=== PATIENT | female | born 1980 | race Caucasian/White ===

== ENCOUNTER 2018-09-21 13:12 | Outpatient (CLI) | payer MEDICAID | END 2018-09-21 15:27 | disposition home or self-care (01) | LOC: OBT 13:12 → L-D 13:14 → OBT 15:27 | DX: O36.8130 Decreased fetal movements, third trimester, not applicable or unspecified (principal); O09.523 Supervision of elderly multigravida, third trimester; Z3A.39 39 weeks gestation of pregnancy | CPT/HCPCS: 76815; 76818 ==

== ENCOUNTER 2018-09-22 18:26 | Outpatient (CLI) | payer MEDICAID | END 2018-09-22 21:22 | disposition home or self-care (01) | LOC: OBT 18:26 → L-D 18:28 → OBT 21:22 | DX: O62.9 Abnormality of forces of labor, unspecified (principal); Z3A.39 39 weeks gestation of pregnancy | CPT/HCPCS: 76818 ==

== ENCOUNTER 2018-09-24 10:29 | Inpatient (IN) | payer MEDICAID ==
[2018-09-24] MEDS ORDERED: CARBOPROST 250 MCG INJ IM (13:30)
[2018-09-24] MEDS ORDERED: BUTORPHANOL 2 MG INJ IV (13:30)
[2018-09-24] MEDS ORDERED: BUTORPHANOL 1 MG INJ IV (13:30)
[2018-09-24] MEDS ORDERED: LIDOCAINE 1% (MPF) 30 ML INJ INJ (13:30)
[2018-09-24] MEDS ORDERED: METHYLERGONOVINE 0.2 MG INJ IM (13:30)
[2018-09-24] MEDS ORDERED: IBUPROFEN 600 MG TAB PO (13:30)
[2018-09-24] MEDS ORDERED: MISOPROSTOL 200 MCG TAB PR (13:30)
[2018-09-24] MEDS ORDERED: OXYTOCIN 30 UNITS/LR 500 ML IV (13:30)
[2018-09-24] MEDS: LACTATED RINGER'S 1,000 ML IV ×2 (13:37→23:00)
[2018-09-24 13:53] LABS: ADD MAN DIFF? NO
[2018-09-24 13:56] LABS: BASOPHILS % 0.4 % (0.0-2.0); EOSINOPHILS # 0.2 10^3/ul (0.0-0.5); EOSINOPHILS % 1.8 % (0.0-7.0); HEMATOCRIT 32.9 % (37.0-47.0); HEMOGLOBIN 10.7 g/dl (12.0-16.0); LYMPHOCYTES # 1.6 10^3/ul (0.8-2.9); LYMPHOCYTES % 18.7 % (15.0-51.0); MEAN CORPUSCULAR HEMOGLOBIN 29.6 pg (29.0-33.0); MEAN CORPUSCULAR HGB CONC 32.5 g/dl (32.0-37.0); MEAN CORPUSCULAR VOLUME 90.9 fl (82.0-101.0); MEAN PLATELET VOLUME 11.8 fl (7.4-10.4); MONOCYTE # 0.5 10^3/ul (0.3-0.9); MONOCYTES % 5.4 % (0.0-11.0); NEUTROPHIL # 6.3 10^3/ul (1.6-7.5); NEUTROPHILS % 73.3 % (39.0-77.0); PLATELET COUNT 196 10^3/UL (140-415); RED BLOOD COUNT 3.62 10^6/ul (4.20-5.40); RED CELL DISTRIBUTION WIDTH 15.8 % (11.5-14.5)
[2018-09-24 13:56] LABS: WHITE BLOOD COUNT 8.5 10^3/ul (4.8-10.8)
[2018-09-24 14:16] LABS: PARTIAL THROMBOPLASTIN TIME 27.4 Sec (23.0-35.0); PROTIME 12.3 Sec (11.9-14.9)
[2018-09-24 17:22] LABS: RAPID PLASMA REAGIN NONREACTIVE (NR)
[2018-09-24] MEDS ORDERED: NALOXONE (0.4 MG/ML) INJ IV (20:00)
[2018-09-25] MEDS: FENTAnyl 2MCG/ML-ROPIV 0.2% 100 ML BAG EPI (00:38)
[2018-09-25] MEDS: OXYTOCIN 30 UNITS/LR 500 ML IV ×2 (02:41→02:42)
[2018-09-25] MEDS: WITCH HAZEL/GLYCERIN PAD PR (04:29)
[2018-09-25] MEDS ORDERED: HYDROCODONE/APAP (5/325) TAB PO (04:30)
[2018-09-25] MEDS ORDERED: MISOPROSTOL 200 MCG TAB PR (04:30)
[2018-09-25] MEDS: BENZOCAINE 20% 56 ML SPRAY TOP (04:30)
[2018-09-25] MEDS ORDERED: METHYLERGONOVINE 0.2 MG INJ IM (04:30)
[2018-09-25] MEDS ORDERED: DIBUCAINE 1% 30 GM OINT TOP (04:30)
[2018-09-25] MEDS ORDERED: OXYTOCIN 30 UNITS/LR 500 ML IV (04:30)
[2018-09-25] MEDS ORDERED: CARBOPROST 250 MCG INJ IM (04:30)
[2018-09-25] MEDS ORDERED: ACETAMINOPHEN 325 MG TAB PO (04:30)
[2018-09-25] MEDS: IBUPROFEN 600 MG TAB PO ×4 (06:55→23:32)
[2018-09-25] MEDS: LACTATED RINGER'S 1,000 ML IV* ×2 (06:55→12:08)
[2018-09-25] MEDS: SENNA/DOCUSATE NA (8.6MG/50MG) TAB PO ×2 (09:11→21:49)
[2018-09-26] MEDS: IBUPROFEN 600 MG TAB PO ×4 (05:32→23:58)
[2018-09-26] MEDS: SENNA/DOCUSATE NA (8.6MG/50MG) TAB PO ×2 (09:46→21:26)
[2018-09-26 15:12] LABS: ADD MAN DIFF? NO
[2018-09-26 15:15] LABS: WHITE BLOOD COUNT 7.8 10^3/ul (4.8-10.8)
[2018-09-26 15:15] LABS: BASOPHILS % 0.5 % (0.0-2.0); EOSINOPHILS # 0.2 10^3/ul (0.0-0.5); EOSINOPHILS % 2.7 % (0.0-7.0); HEMATOCRIT 29.7 % (37.0-47.0); HEMOGLOBIN 9.6 g/dl (12.0-16.0); LYMPHOCYTES % 26.3 % (15.0-51.0); MEAN CORPUSCULAR HEMOGLOBIN 29.3 pg (29.0-33.0); MEAN CORPUSCULAR HGB CONC 32.3 g/dl (32.0-37.0); MEAN CORPUSCULAR VOLUME 90.5 fl (82.0-101.0); MEAN PLATELET VOLUME 11.1 fl (7.4-10.4); MONOCYTE # 0.5 10^3/ul (0.3-0.9); MONOCYTES % 5.9 % (0.0-11.0); NEUTROPHILS % 64.1 % (39.0-77.0); PLATELET COUNT 176 10^3/UL (140-415); RED BLOOD COUNT 3.28 10^6/ul (4.20-5.40)
[2018-09-27] MEDS: IBUPROFEN 600 MG TAB PO ×3 (05:40→17:32)
[2018-09-27] MEDS: DIPHTH/TET/ACEL PERTUSS (ADULT) 0.5 ML VIAL IM* (09:00)
[2018-09-27] MEDS: SENNA/DOCUSATE NA (8.6MG/50MG) TAB PO (09:00)
== END 2018-09-27 18:10 | disposition home or self-care (01) | DRG 807 ==
LOC: OBT 10:29 → PP1 09-25 03:59 → L-D 10:30 → OBT 13:10 → L-D 13:10
PROVIDERS: Obstetrics & Gynecology
PROC: 10E0XZZ Delivery of Products of Conception, External Approach (ICD-10-PCS; principal; 2018-09-24)
PROC: 3E033VJ Introduction of Other Hormone into Peripheral Vein, Percutaneous Approach (ICD-10-PCS; 2018-09-24)
DX: O48.0 Post-term pregnancy (principal); O69.81X0 Labor and delivery complicated by cord around neck, without compression, not applicable or unspecified; Z37.0 Single live birth; Z3A.40 40 weeks gestation of pregnancy
CPT/HCPCS: 62319; 76818; 85025; 85610; 85730; 86592; 86850; 86900; 86901